=== PATIENT | female | born 1945 | race Caucasian/White ===

== ENCOUNTER → 2016-09-30 | Outpatient (CLI) | payer MEDICARE, OTHER ==
--- NOTE | 2016-10-01 10:47 | MRI ---
EXAM DESCRIPTION: MRI of the cervical spine CLINICAL HISTORY: RADICULOPATHY COMPARISON: None. TECHNIQUE: Multiplanar MRI of the cervical spine was performed without contrast. GENERAL The dens is unremarkable. The craniocervical and the atlantoaxial junctions are normal. Patient is status post anterior fusion of C5 through C7. Solid fusion noted at these levels. Vertebral body height and alignment is unremarkable. C2-3 Moderate right neural foraminal narrowing. Mild left neural foraminal narrowing. The midline diameter of the spinal canal is unremarkable. C3-4 Moderate bilateral neural foraminal narrowing. The midline diameter of the spinal canal is unremarkable. C4-5 Ligamentum flavum buckling and a 2 mm broad-based posterior disc protrusion. There is cord contact without myelomalacia. The AP diameter of the spinal canal is narrowed to 8.5 mm. There is moderate bilateral neural foraminal narrowing and facet degeneration. C5-6 Severe left and moderate right neural foraminal narrowing. The midline diameter of the spinal canal is mildly narrowed to 9 mm. No cord contact or myelomalacia. C6-7 Severe bilateral neural foraminal narrowing. The midline diameter of the spinal canal is adequate at 1 cm. C7-T1 2 mm broad-based posterior disc protrusion. Mild bilateral neural foraminal narrowing. The midline diameter of the spinal canal is unremarkable. It measures 1 cm in diameter. CORD AND INTRASPINAL No cervical cord or intraspinal lesions. IMPRESSION: Today's exam demonstrates C5 through C7 anterior fusion with solid fusion of the intervertebral levels. There is mild spinal canal narrowing at C4-5 and C5-6 without evidence of myelomalacia. Multilevel neural foraminal narrowing is noted. This most pronounced bilaterally at C6-7 in which there is severe narrowing. Electronically signed by: Shahid Hubbard MD 10/01/2016 10:45
== END ==
LOC: MRI 14:18
PROVIDERS: ATTEND Family Medicine
DX: M54.2 Cervicalgia (principal); M43.22 Fusion of spine, cervical region; M25.50 Pain in unspecified joint; M10.9 Gout, unspecified

== ENCOUNTER → 2016-10-13 | Outpatient (CLI) | payer MEDICARE, OTHER ==
--- NOTE | 2016-10-13 15:02 | MAM ---
EXAM DESCRIPTION: MAMMO BREAST SCREENING BILATERAL CAD, images were reviewed with CAD technology, R2 computer-aided detection. CLINICAL HISTORY: Well [facility]. COMPARISON: No prior study currently available. FINDINGS: Routine views are obtained. Glandular parenchyma is nodular in contour and of the increased mammographic density. Mammographic nodule right breast 10 o'clock 4-6 cm from the nipple and right breast retroareolar 9 o'clock are shown. Benign appearing calcifications are shown on the right. No architectural distortion is seen.. IMPRESSION: Incomplete study. BIRAD CATEGORY: 0 INCOMPLETE RECOMMENDATIONS: FOLLOW-UP: True lateral view right breast with spot compression films in the true lateral and craniocaudal projections. Directed ultrasound if indicated. According to the [employer], yearly mammograms are recommended starting at age 40 and continuing as long as a woman is in good health. Any breast change noted on a breast self-exam should be reported promptly to the patient's healthcare provider. Breast MRI is recommended for women with an approximately 20-25% or greater lifetime risk of breast cancer, including women with a strong family history of breast or ovarian cancer and women who have been treated for Hodgkin's disease. Electronically signed by: Muriel Lozano 10/13/2016 15:01
== END | disposition home or self-care (01) ==
LOC: MAMMO 10:05
PROVIDERS: ATTEND Family Medicine
DX: Z12.31 Encounter for screening mammogram for malignant neoplasm of breast (principal)

== ENCOUNTER → 2016-12-10 | Outpatient (CLI) | payer MEDICARE, OTHER | LOC: GMAL 12:37 | PROVIDERS: ATTEND Family Medicine | DX: R53.83 Other fatigue (principal); E55.9 Vitamin D deficiency, unspecified ==

== ENCOUNTER → 2016-12-18 | Outpatient (CLI) | payer MEDICARE, OTHER ==
--- NOTE | 2016-12-21 07:57 | MRI ---
EXAM DESCRIPTION: Lumbar Spine w/o Contrast CLINICAL HISTORY: 71 years, Female, LOW BACK PAIN COMPARISON: None TECHNIQUE: Multiplanar multi sequence images of the lumbar spine were obtained without gadolinium contrast. FINDINGS: Vertebral body height and alignment are well maintained. There are Modic type I discogenic endplate signal changes at L3-4. The conus lies posterior to the T12-L1 disc, and the cauda equina is unremarkable. The paraspinal and visualized retroperitoneal soft tissues are unremarkable. At L1-2, there is a 1 cm round intermediate T2 intermediate T1 signal structure in the left neural foramen which may represent extruded disc material. This abuts the exiting left L1 nerve root and results in severe left-sided neuroforaminal stenosis. No significant facet joint degeneration, central canal or right-sided neuroforaminal stenosis. At L2-3, there is concentric disc bulging with mild bilateral facet joint degeneration. No central canal or neuroforaminal stenosis. At L3-4, there is disc desiccation with concentric disc bulging, slightly worse in the right foraminal and right lateral positions. There is bilateral facet joint degeneration with ligamentum flavum thickening resulting in moderate central canal and moderate bilateral neuroforaminal stenosis, worse on the right side. No definite nerve root abutment. At L4-5, there is mild concentric disc bulging with bilateral facet joint degeneration and ligament flavum thickening resulting in mild to moderate central canal stenosis. No significant neuroforaminal stenosis. At L5-S1, there is only slight concentric disc bulging. Bilateral facet joint degeneration is also noted, but there is no central canal or neuroforaminal stenosis. IMPRESSION: 1 cm round lesion in the left neural foramen at L1-2 as detailed above, likely representing extruded disc material resulting in severe left-sided neuroforaminal stenosis and abutment of the exiting left L1 nerve root. MRI with gadolinium contrast is suggested for confirmation that this represents disc material rather than a lesion arising from the nerve sheath. Disc bulging, facet joint degeneration and ligamentum flavum thickening at L3-4 and L4-5 resulting in central canal and neural foraminal stenosis as detailed above. No additional nerve root abutment. Electronically signed by: Chinmay Page MD 12/21/2016 7:56 AM CDT
== END | disposition home or self-care (01) ==
LOC: MRI 12:56
PROVIDERS: ATTEND Family Medicine
DX: M48.06 Spinal stenosis, lumbar region (principal)

== ENCOUNTER → 2016-12-24 | Outpatient (CLI) | payer MEDICARE, OTHER ==
--- NOTE | 2016-12-24 13:33 | MAM ---
History: Focal asymmetry upper outer right breast. DATE OF SERVICE: 12/24/2016 Services provided: Full field digital diagnostic right mammography. FINDINGS: True lateral view of the right breast as well as spot compression views of the 10:00 portion right breast were obtained. Since the initial screening exam performed 10/13/2016 outside studies have been received dated 10/2009. The additional views demonstrate what appears to be normal glandular tissue without persistent mammographic abnormality. No associated distortion or dominant mass. Scattered benign calcifications are stable since the prior study. IMPRESSION: Benign exam. No mammographic evidence for malignancy in the right breast. Recommendation: Routine annual mammography. Findings and recommendations were communicated to the patient. BIRAD CATEGORY: 2 BENIGN Electronically signed by: Muriel Lozano MD 12/24/2016 1:31 PM CDT
--- NOTE | 2016-12-24 15:49 | MRI ---
EXAM DESCRIPTION: Lumbar Spine w/wo Contrast CLINICAL HISTORY: 71 years, Female, LOW BACK PAIN COMPARISON: Noncontrast MRI performed on December 18, 2016 TECHNIQUE: Multiplanar multi sequence images of the lumbar spine were obtained with and without gadolinium contrast. FINDINGS: Again seen is an ovoid lesion in the left neural foramen at L1-2 which demonstrates peripheral enhancement on postcontrast imaging consistent with extruded disc material resulting in severe left-sided neuroforaminal stenosis. No additional enhancing lesion is seen in the central canal, neural foramina, paraspinal soft tissues or visualized retroperitoneum. IMPRESSION: 9 mm disc extrusion in the left neural foramen at L1-2 resulting in severe left-sided neuroforaminal stenosis. Electronically signed by: Chinmay Page MD 12/24/2016 3:48 PM CDT
== END | disposition home or self-care (01) ==
LOC: MRI 08:54
PROVIDERS: ATTEND Family Medicine
DX: M48.06 Spinal stenosis, lumbar region (principal); R92.8 Other abnormal and inconclusive findings on diagnostic imaging of breast; M54.5 Low back pain

== ENCOUNTER 2017-01-13 20:46 | Emergency (ER) | payer MEDICARE, OTHER ==
[2017-01-13] MEDS ORDERED: SODIUM CHLORIDE 0.9% 10 ML VIAL ONE (20:48)
[2017-01-13] MEDS ORDERED: ASPIRIN TABLET 325 MG TAB ONE (20:51)
[2017-01-13] MEDS ORDERED: NITROGLYCERIN 0.4 MG 25 EA TAB SL ONE ×2 (20:51→20:52)
[2017-01-13] MEDS ORDERED: ASPIRIN TABLET 325 MG TAB PO ONE (20:52)
--- NOTE | 2017-01-13 21:42 | RAD ---
EXAM: Chest,1 View CLINICAL INDICATION: 71-year-old female with chest pain. TECHNIQUE: Single view, AP portable chest was obtained. COMPARISON: None. FINDINGS: Unremarkable cardiac and mediastinal silhouette. Heart size is normal. Tortuous atherosclerotic thoracic aorta. Lungs are clear without focal opacity, pneumothorax or pleural effusions. Bilateral linear basilar opacities may be secondary to subsegmental atelectasis or scarring. The visualized bones are within normal limits. Cervical fusion hardware. IMPRESSION: No acute cardiopulmonary abnormalities. Electronically signed by: Bhavani Nieto MD 01/13/2017 9:42 PM CDT
[2017-01-14] MEDS ORDERED: LIDOCAINE VIS-MYLANTA 30 ML UD PO ONE ×2 (01:08→01:09)
--- NOTE | 2017-01-14 01:10 | ED.PDOC ---
History of Present Illness - General Chief Complaint: Chest Pain/CO Stated Complaint: SOB, CP, Back pain Time Seen by Provider: 01/13/17 20:56 Source: patient Exam Limitations: no limitations - History of Present Illness Initial Comments: Patient presents with midsternal chest pain for approximately three hours. She says it was sudden onset but happened after some dyspnea she was having. She says she has had a history of "anxious breathing". Pain is non-radiating, sharp , constant, with no exacerbating nor alleviating factors. She has had previous episodes. No other complaints. Timing/Duration: 1-3 hours Severity: moderate Improving Factors: nothing Worsening Factors: nothing Associated Symptoms: shortness of breath Allergies/Adverse Reactions: Allergies Niacin Allergy (Verified 08/24/16 08:47) Penicillin G Allergy (Verified 08/24/16 08:47) Simvastatin [From Zocor] Allergy (Verified 08/24/16 08:47) Ezetimibe [From Zetia] Adverse Reaction (Verified 08/24/16 08:47) Promethazine [From Phenergan] Adverse Reaction (Verified 08/24/16 08:47) Statins Adverse Reaction (Verified 08/24/16 08:47) Home Medications: Ambulatory Orders Clonazepam 1 mg PO BEDTIME 08/24/16 Famotidine 40 mg PO DAILY 08/24/16 Linaclotide [Linzess] 145 mcg PO DAILY 08/24/16 Lisinopril 2.5 mg PO DAILY 08/24/16 Oxycodone HCl 10 mg PO DAILY 08/24/16 Premarin 0.625 mg PO DAILY 08/24/16 Trazodone HCl 150 mg PO BEDTIME 08/24/16 Albuterol Sulfate Nebs [Proventil Nebs] 2.5 mg INH PRN 01/13/17 Aspirin [Aspirin Adult Low Dose] 81 mg PO DAILY 01/13/17 Benzonatate 200 mg PO PRN 01/13/17 Fluticasone/Salmeterol 250/50 [Advair Diskus] 1 puff INH BID 01/13/17 Gabapentin 600 mg PO TID 01/13/17 Levothyroxine Sodium [Synthroid] 75 mcg PO DAILY 01/13/17 Melatonin [(None)] 3 mg PO BEDTIME 01/13/17 Saccharomyces Boulardii [Probiotic] 250 mg PO DAILY 01/13/17 Review of Systems - Review of Systems Constitutional: States: no symptoms reported EENTM: States: no symptoms reported Respiratory: States: see HPI Cardiology: States: see HPI Gastrointestinal/Abdominal: States: no symptoms reported Genitourinary: States: no symptoms reported Musculoskeletal: States: no symptoms reported Skin: States: no symptoms reported Neurological: States: no symptoms reported Endocrine: States: no symptoms reported Hematologic/Lymphatic: States: no symptoms reported Past Medical History (General) - Patient Medical History Hx Seizures: No Hx Stroke: No Hx Dementia: No Hx Asthma: No Hx of COPD: No Hx Cardiac Disorders: Yes Hx Congestive Heart Failure: No Hx Pacemaker: No Hx Hypertension: Yes Hx Thyroid Disease: No Hx Diabetes: No Hx Gastroesophageal Reflux: Yes Hx Renal Disease: No Hx Cancer: No Hx of HIV: No Hx Hepatitis C: No Hx MRSA: No Surgical History: appendectomy, cholecystectomy, tonsillectomy, Hysterectomy - Vaccination History Hx Tetanus, Diphtheria Vaccination: No Hx Influenza Vaccination: Yes Hx Pneumococcal Vaccination: Yes Immunizations Up to Date: No - Social History Hx Tobacco Use: No Hx Chewing Tobacco Use: No Hx Alcohol Use: No Hx Substance Use: No Hx Substance Use Treatment: No Hx Depression: No Feels Threatened In Home Enviroment: No Feels Threatened In a Relationship: No Hx Physical Abuse: No Hx Emotional Abuse: No Hx Suspected Abuse: No - Female History Patient : No Family Medical History - Family History Mother Family History: Unknown Living Status: Hx Family Congestive Heart Failure: No Physical Exam - Physical Exam General Appearance: Alert Ears, Nose, Throat: normal ENT inspection Neck: non-tender, full range of motion, supple Respiratory: lungs clear Cardiovascular/Chest: regular rate, rhythm Gastrointestinal/Abdominal: normal bowel sounds, non tender, soft Extremity: no pedal edema Skin Exam: normal color Lymphatic: no adenopathy Progress - Progress Progress: 01/14/17 01:11 Patient given ASA 324 mg po x one EKG read by me showed sinus tachycardia, no ST changes nor T wave inversions. No LBBB. Troponins x 2 negative. Patient' dyspnea resolved and she described the chest pain as more of an acid reflux type of feeling. She was given a GI cocktail and sent home. Laboratory Tests 01/13/17 01/13/17 01/13/17 21:00 21:00 21:00 WBC 10.5 RBC 4.66 Hgb 14.0 Hct 41.6 MCV 89.3 MCH 30.0 MCHC 33.6 RDW 13.4 Plt Count 230 MPV 9.6 Absolute Neuts (auto) 9.50 H Absolute Lymphs (auto) 0.90 L Absolute Monos (auto) 0.10 L Absolute Eos (auto) 0.00 Absolute Basos (auto) 0.10 Neutrophils % 90.1 H Lymphocytes % 8.5 L Monocytes % 0.8 L Eosinophils % 0.1 L Basophils % 0.5 PT INR PTT (SP) Sodium 138 Potassium 3.7 Chloride 105 Carbon Dioxide 22 Anion Gap 14.7 BUN 19 H Creatinine 1.06 BUN/Creatinine Ratio 17.9 Random Glucose 238 H Serum Osmolality 285.7 Calcium 9.7 Total Bilirubin 0.4 AST 36 ALT 30 Alkaline Phosphatase 49 Creatine Kinase 108 CK-MB (CK-2) 1.8 CK-MB (CK-2) % Not Reportable Troponin I < 0.02 B-Natriuretic Peptide 100.0 Serum Total Protein 7.2 Albumin 4.4 Globulin 2.8 Albumin/Globulin Ratio 1.6 01/13/17 01/14/17 21:00 00:20 WBC RBC Hgb Hct MCV MCH MCHC RDW Plt Count MPV Absolute Neuts (auto) Absolute Lymphs (auto) Absolute Monos (auto) Absolute Eos (auto) Absolute Basos (auto) Neutrophils % Lymphocytes % Monocytes % Eosinophils % Basophils % PT 10.4 INR 0.920 PTT (SP) 30.2 Sodium Potassium Chloride Carbon Dioxide Anion Gap BUN Creatinine BUN/Creatinine Ratio Random Glucose Serum Osmolality Calcium Total Bilirubin AST ALT Alkaline Phosphatase Creatine Kinase 86 CK-MB (CK-2) 1.6 CK-MB (CK-2) % Not Reportable Troponin I < 0.02 B-Natriuretic Peptide Serum Total Protein Albumin Globulin Albumin/Globulin Ratio Departure - Departure Clinical Impression: Chest pain, Anxiety Disposition: Discharge to Home or Self Care Condition: Good Departure Forms: ED Discharge - Pt. Copy, Patient Portal Self Enrollment Diet: resume usual diet Activity: increase activity as tolerated Referrals: Xavier Lopze III, MD [Primary Care Provider] - 1-2 Weeks Home Medications: Ambulatory Orders Clonazepam 1 mg PO BEDTIME 08/24/16 Famotidine 40 mg PO DAILY 08/24/16 Linaclotide [Linzess] 145 mcg PO DAILY 08/24/16 Lisinopril 2.5 mg PO DAILY 08/24/16 Oxycodone HCl 10 mg PO DAILY 08/24/16 Premarin 0.625 mg PO DAILY 08/24/16 Trazodone HCl 150 mg PO BEDTIME 08/24/16 Albuterol Sulfate Nebs [Proventil Nebs] 2.5 mg INH PRN 01/13/17 Aspirin [Aspirin Adult Low Dose] 81 mg PO DAILY 01/13/17 Benzonatate 200 mg PO PRN 01/13/17 Fluticasone/Salmeterol 250/50 [Advair Diskus] 1 puff INH BID 01/13/17 Gabapentin 600 mg PO TID 01/13/17 Levothyroxine Sodium [Synthroid] 75 mcg PO DAILY 01/13/17 Melatonin [(None)] 3 mg PO BEDTIME 01/13/17 Saccharomyces Boulardii [Probiotic] 250 mg PO DAILY 01/13/17 Additional Instructions: Follow up with your primary care physician in the next week.
[2017-01-14 01:24] VITALS: BP 104/48; TEMP 97.8; O2SAT 96
== END 2017-01-14 01:24 | disposition home or self-care (01) ==
LOC: ER 20:46
DX: R07.9 Chest pain, unspecified (principal); F41.9 Anxiety disorder, unspecified; I10 Essential (primary) hypertension; K21.9 Gastro-esophageal reflux disease without esophagitis; Z79.899 Other long term (current) drug therapy; Z79.82 Long term (current) use of aspirin; Z88.0 Allergy status to penicillin; Z88.8 Allergy status to other drugs, medicaments and biological substances

== ENCOUNTER 2017-03-26 09:17 | Emergency (ER) | payer MEDICARE, OTHER ==
--- NOTE | 2017-03-26 09:39 | ED.PDOC ---
History of Present Illness - General Chief Complaint: Cardiovascular Problem Stated Complaint: chest pain Time Seen by Provider: 03/26/17 09:23 Source: patient, RN notes reviewed, Vital Signs reviewed Exam Limitations: no limitations - History of Present Illness Initial Comments: Patient comes in with c/o of chest pain and SOB that occurred @ 18:30 last night and resolved on own @ 20:30. Symptoms started with her feeling hot and starting to sweat. She got up to get a glass of tea and felt very SOB while walking to kitchen. She then developed some mild chest heaviness with nausea. Other than some mild SOB she has been symptom free for 13 hours. No recent travel. Timing/Duration: 1-3 hours - 2 hours, resolved prior to arrival Severity/Quality: mild, pressure Location: substernal Chest Pain Radiation: no radiation Activities at Onset: rest Prior Chest Pain/Cardiac Workup: echocardiography - yesterday, other - Cardiovascular disease Improving Factors: nothing Worsening Factors: nothing Nitro Today/Relief: no nitro taken today Aspirin Treatment Today: no aspirin today Associated Symptoms: dizziness, nausea/vomiting, shortness of breath Allergies/Adverse Reactions: Allergies Acetaminophen [From Darvocet-N] Allergy (Verified 03/26/17 09:25) Niacin Allergy (Verified 08/24/16 08:47) Penicillin G Allergy (Verified 08/24/16 08:47) Propoxyphene [From Darvocet-N] Allergy (Verified 03/26/17 09:25) Simvastatin [From Zocor] Allergy (Verified 08/24/16 08:47) Ezetimibe [From Zetia] Adverse Reaction (Verified 08/24/16 08:47) Promethazine [From Phenergan] Adverse Reaction (Verified 08/24/16 08:47) Statins Adverse Reaction (Verified 08/24/16 08:47) Home Medications: Ambulatory Orders Clonazepam 1 mg PO BEDTIME 08/24/16 Famotidine 40 mg PO DAILY 08/24/16 Linaclotide [Linzess] 145 mcg PO DAILY 08/24/16 Lisinopril 2.5 mg PO DAILY 08/24/16 Oxycodone HCl 10 mg PO DAILY 08/24/16 Premarin 0.625 mg PO DAILY 08/24/16 Trazodone HCl 150 mg PO BEDTIME 08/24/16 Albuterol Sulfate Nebs [Proventil Nebs] 2.5 mg INH PRN 01/13/17 Aspirin [Aspirin Adult Low Dose] 81 mg PO DAILY 01/13/17 Benzonatate 200 mg PO PRN 01/13/17 Fluticasone/Salmeterol 250/50 [Advair Diskus] 1 puff INH BID 01/13/17 Gabapentin 600 mg PO TID 01/13/17 Levothyroxine Sodium [Synthroid] 75 mcg PO DAILY 01/13/17 Melatonin [(None)] 3 mg PO BEDTIME 01/13/17 Saccharomyces Boulardii [Probiotic] 250 mg PO DAILY 01/13/17 Nitroglycerin 0.4 mg Tab [Nitrostat] 0.4 mg SL Q5MIN PRN #1 bttl 03/26/17 Review of Systems - Review of Systems Constitutional: States: diaphoresis - now resolved. Denies: chills, fever - but felt hot, malaise, weakness EENTM: States: no symptoms reported Respiratory: States: short of breath. Denies: cough Cardiology: States: chest pain - Now resolved. Denies: palpitations, syncope Gastrointestinal/Abdominal: States: nausea - now resolved. Denies: abdominal pain Musculoskeletal: States: no symptoms reported Skin: States: no symptoms reported Neurological: States: no symptoms reported All other Systems: No Change from Baseline Past Medical History (General) - Patient Medical History Hx Seizures: No Hx Stroke: No Hx Dementia: No Hx Asthma: No Hx of COPD: No Hx Cardiac Disorders: Yes Hx Congestive Heart Failure: No Hx Pacemaker: No Hx Hypertension: Yes Hx Thyroid Disease: Yes Hx Diabetes: No Hx Gastroesophageal Reflux: Yes Hx Renal Disease: No Hx Cancer: No Hx of HIV: No Hx Hepatitis C: No Hx MRSA: No Surgical History: appendectomy, cholecystectomy, tonsillectomy, Hysterectomy, other - Vaccination History Hx Tetanus, Diphtheria Vaccination: No Hx Influenza Vaccination: Yes Hx Pneumococcal Vaccination: Yes - Social History Hx Tobacco Use: No Hx Chewing Tobacco Use: No Hx Alcohol Use: No Hx Substance Use: No Hx Substance Use Treatment: No Hx Depression: No Hx Physical Abuse: No Hx Emotional Abuse: No Hx Suspected Abuse: No - Female History Patient : No Family Medical History - Family History Mother Family History: Unknown Living Status: Hx Family Congestive Heart Failure: No Physical Exam - Physical Exam General Appearance: Alert, Comfortable, No apparent distress, Well Developed, Well Groomed, Well Hydrated, Well Nourished Neck: non-tender, full range of motion, supple, normal inspection Respiratory: chest non-tender, lungs clear, normal breath sounds, no respiratory distress, no accessory muscle use Cardiovascular/Chest: normal peripheral pulses, regular rate, rhythm, no edema, no gallop, no JVD, no murmur Peripheral Pulses: radial,right: 2+, radial,left: 2+, posterior tibialis,right: 2+, posterior tibialis,left: 2+ Gastrointestinal/Abdominal: normal bowel sounds, non tender, soft, no organomegaly, no pulsatile mass Extremity: normal range of motion, non-tender, normal inspection, no pedal edema Neurologic: alert, normal mood/affect, oriented x 3 Skin Exam: normal color, warm/dry Comments: Vital Signs 03/26/17 09:18 Pulse Rate [RAC 65 ] Respiratory 20 Rate Blood Pressure 143/79 [RAC] O2 Sat by Pulse 96 Oximetry Progress - Progress Progress: 03/26/17 10:23 Discussed results with patient and family. Rec. follow up with Environmental Compliance Specialist. - Results/Orders Results/Orders: Laboratory Tests 03/26/17 03/26/17 03/26/17 09:45 09:45 09:45 WBC 14.2 H RBC 4.34 Hgb 12.8 Hct 38.8 MCV 89.5 MCH 29.6 MCHC 33.1 RDW 13.8 Plt Count 219 MPV 9.2 Absolute Neuts (auto) 11.10 H Absolute Lymphs (auto) 2.00 Absolute Monos (auto) 1.00 H Absolute Eos (auto) 0.10 Absolute Basos (auto) 0.10 Neutrophils % 77.7 Lymphocytes % 14.2 L Monocytes % 7.1 Eosinophils % 0.4 L Basophils % 0.6 D-Dimer, Quantitative < 200 Sodium 138 Potassium 4.0 Chloride 105 Carbon Dioxide 24 Anion Gap 13.0 BUN 15 Creatinine 0.92 BUN/Creatinine Ratio 16.3 Random Glucose 109 H Serum Osmolality 277.1 Calcium 9.7 Total Bilirubin 0.7 AST 17 ALT 21 Alkaline Phosphatase 48 Creatine Kinase 54 CK-MB (CK-2) 1.4 CK-MB (CK-2) % Not Reportable Troponin I < 0.02 Serum Total Protein 6.6 Albumin 3.9 Globulin 2.7 Albumin/Globulin Ratio 1.4 - EKG/XRAY/CT EKG: Sinus, no ST T wave changes XRAY: chest - cardiomegaly o/w no acute findings per Radiologist Departure - Departure Clinical Impression: Chest pain Qualifiers: Chest pain type: chest pain due to myocardial ischemia Ischemic chest pain type : stable angina pectoris Qualified Code(s): I20.8 - Other forms of angina pectoris Time of Disposition: 10:25 Disposition: Discharge to Home or Self Care Condition: Good Departure Forms: ED Discharge - Pt. Copy, Patient Portal Self Enrollment Instructions: DI for Angina Diet: resume usual diet Activity: increase activity as tolerated Referrals: Xavier Lopez III, MD [Primary Care Provider] - 1 Week CHASE SALTER [Referring] - 1 Week Prescriptions: Nitroglycerin 0.4 mg Tab [Nitrostat] 0.4 mg SL Q5MIN PRN #1 bttl PRN Reason: Chest Pain Home Medications: Ambulatory Orders Clonazepam 1 mg PO BEDTIME 08/24/16 Famotidine 40 mg PO DAILY 08/24/16 Linaclotide [Linzess] 145 mcg PO DAILY 08/24/16 Lisinopril 2.5 mg PO DAILY 08/24/16 Oxycodone HCl 10 mg PO DAILY 08/24/16 Premarin 0.625 mg PO DAILY 08/24/16 Trazodone HCl 150 mg PO BEDTIME 08/24/16 Albuterol Sulfate Nebs [Proventil Nebs] 2.5 mg INH PRN 01/13/17 Aspirin [Aspirin Adult Low Dose] 81 mg PO DAILY 01/13/17 Benzonatate 200 mg PO PRN 01/13/17 Fluticasone/Salmeterol 250/50 [Advair Diskus] 1 puff INH BID 01/13/17 Gabapentin 600 mg PO TID 01/13/17 Levothyroxine Sodium [Synthroid] 75 mcg PO DAILY 01/13/17 Melatonin [(None)] 3 mg PO BEDTIME 01/13/17 Saccharomyces Boulardii [Probiotic] 250 mg PO DAILY 01/13/17 Nitroglycerin 0.4 mg Tab [Nitrostat] 0.4 mg SL Q5MIN PRN #1 bttl 03/26/17
--- NOTE | 2017-03-26 10:20 | RAD ---
EXAM DESCRIPTION: Chest,1 View CLINICAL HISTORY: CP/SOB COMPARISON: January 13, 2017 IMPRESSION: Single AP portable upright view of the chest shows enlargement of the cardiac silhouette without pulmonary vascular congestion. Moderate vascular calcifications. Lungs are normally aerated. Linear interstitial thickening in the region of the lingula of left upper lobe and right middle lobe are again seen suggesting scarring or atelectasis. No obvious pleural effusion or pneumothorax is seen. Electronically signed by: Mik Georges MD 03/26/2017 10:18 AM CDT
[2017-03-26 11:11] VITALS: BP 163/76; O2SAT 95
== END 2017-03-26 10:48 | disposition home or self-care (01) ==
LOC: ER 09:17
DX: I20.8 Other forms of angina pectoris (principal); I10 Essential (primary) hypertension; E07.9 Disorder of thyroid, unspecified; I51.7 Cardiomegaly; K21.9 Gastro-esophageal reflux disease without esophagitis; Z79.899 Other long term (current) drug therapy; Z79.82 Long term (current) use of aspirin; Z88.0 Allergy status to penicillin; Z88.6 Allergy status to analgesic agent; Z88.8 Allergy status to other drugs, medicaments and biological substances

== ENCOUNTER → 2017-05-05 | Outpatient (CLI) | payer MEDICARE, OTHER | LOC: GMAL 11:01 | PROVIDERS: ATTEND Family Medicine | DX: D51.3 Other dietary vitamin B12 deficiency anemia (principal) ==

== ENCOUNTER → 2017-12-06 | Outpatient (CLI) | payer MEDICARE, OTHER | END | disposition home or self-care (01) | LOC: LAB.O 09:17 | PROVIDERS: ATTEND Pain Medicine Interventional Pain Medicine | DX: Z01.810 Encounter for preprocedural cardiovascular examination (principal); Z51.81 Encounter for therapeutic drug level monitoring; Z01.812 Encounter for preprocedural laboratory examination; M54.5 Low back pain; M41.20 Other idiopathic scoliosis, site unspecified; M51.36 Other intervertebral disc degeneration, lumbar region ==

== ENCOUNTER → 2018-01-18 | Outpatient (CLI) | payer MEDICARE, OTHER | LOC: GMAL 12:07 | PROVIDERS: ATTEND Family Medicine | DX: R53.83 Other fatigue (principal) ==

== ENCOUNTER → 2018-07-14 | Outpatient (CLI) | payer MEDICARE, OTHER | LOC: LAB.O 09:45 | PROVIDERS: ATTEND Pain Medicine Interventional Pain Medicine | DX: Z01.810 Encounter for preprocedural cardiovascular examination (principal); Z01.812 Encounter for preprocedural laboratory examination; Z51.81 Encounter for therapeutic drug level monitoring; Z79.01 Long term (current) use of anticoagulants; M41.20 Other idiopathic scoliosis, site unspecified; M51.36 Other intervertebral disc degeneration, lumbar region ==

== ENCOUNTER → 2018-09-27 | Outpatient (CLI) | payer MEDICARE, OTHER | LOC: GMAL 10:27 | PROVIDERS: ATTEND Family Medicine | DX: D51.3 Other dietary vitamin B12 deficiency anemia (principal); E55.9 Vitamin D deficiency, unspecified ==

== ENCOUNTER 2018-12-18 10:57 | Emergency (ER) | payer MEDICARE, OTHER ==
[2018-12-18 11:22] VITALS: TEMP 96.9
[2018-12-18] MEDS ORDERED: predniSONE 20 MG TAB PO ONE (13:02)
[2018-12-18] MEDS ORDERED: KETOROLAC TROMETHAMINE INJ 30 MG/ML VIAL IM ONE (13:02)
[2018-12-18] MEDS ORDERED: CYCLOBENZAPRINE HCL 10 MG TAB PO ONE (13:02)
--- NOTE | 2018-12-18 13:06 | ED.PDOC ---
History of Present Illness - General Chief Complaint: Neck Injury/Pain Stated Complaint: neck pain Time Seen by Provider: 12/18/18 11:02 Source: patient Exam Limitations: no limitations - History of Present Illness Initial Comments: the patient is a 77-year-old female presenting to the emergency room secondary to diffuse paraspinals muscle spasm of the cervical spine extending to the trapezius muscles bilaterally. The patient has an associated tension headache. it has been progressive over the last week. She has had previous cervical spine surgeries in the past and does have significant arthritis there to start with. No recent injury. No focal neurological changes. Timing/Duration: 1 week Severity: moderate Improving Factors: nothing Worsening Factors: movement Associated Symptoms: denies symptoms Allergies/Adverse Reactions: Allergies Acetaminophen [From Darvocet-N] Allergy (Verified 03/26/17 09:25) Niacin Allergy (Verified 08/24/16 08:47) Penicillin G Allergy (Verified 08/24/16 08:47) Propoxyphene [From Darvocet-N] Allergy (Verified 03/26/17 09:25) Simvastatin [From Zocor] Allergy (Verified 08/24/16 08:47) Ezetimibe [From Zetia] Adverse Reaction (Verified 08/24/16 08:47) Promethazine [From Phenergan] Adverse Reaction (Verified 08/24/16 08:47) Statins Adverse Reaction (Verified 08/24/16 08:47) Home Medications: Ambulatory Orders Linaclotide [Linzess] 145 mcg PO .TWICEWEEKLY 08/24/16 Trazodone HCl 150 mg PO BEDTIME 08/24/16 Albuterol Sulfate Nebs [Proventil Nebs] 2.5 mg INH PRN 01/13/17 Benzonatate 200 mg PO PRN 01/13/17 Gabapentin 600 mg PO TID 01/13/17 Levothyroxine Sodium [Synthroid] 75 mcg PO DAILY 01/13/17 Melatonin [(None)] 3 mg PO BEDTIME 01/13/17 Budesonide-Formoterol Fumarate [Symbicort] 1 aer IN BID PRN 12/18/18 Clonazepam 1 mg PO BEDTIME 12/18/18 Cyclobenzaprine HCl [Flexeril] 10 mg PO TID PRN #20 tab 12/18/18 Escitalopram [Lexapro] 5 mg PO DAILY 12/18/18 Estrogens, Conjugated [Premarin] 1.25 mg PO DAILY 12/18/18 predniSONE [Prednisone] 20 mg PO DAILY #5 tab 12/18/18 Review of Systems - Review of Systems Constitutional: States: no symptoms reported EENTM: States: no symptoms reported Respiratory: States: no symptoms reported Cardiology: States: no symptoms reported Gastrointestinal/Abdominal: States: no symptoms reported Genitourinary: States: no symptoms reported Musculoskeletal: States: neck pain Skin: States: no symptoms reported Neurological: States: no symptoms reported Endocrine: States: no symptoms reported All other Systems: No Change from Baseline Past Medical History (General) - Patient Medical History Hx Seizures: No Hx Stroke: No Hx Dementia: No Hx Asthma: No Hx of COPD: No Hx Cardiac Disorders: Yes Hx Congestive Heart Failure: No Hx Pacemaker: No Hx Hypertension: Yes Hx Thyroid Disease: Yes Hx Diabetes: No Hx Gastroesophageal Reflux: Yes Hx Renal Disease: No Hx Cancer: No Hx of HIV: No Hx Hepatitis C: No Hx MRSA: No Surgical History: appendectomy, cholecystectomy, tonsillectomy, Hysterectomy - Vaccination History Hx Tetanus, Diphtheria Vaccination: No Hx Influenza Vaccination: Yes Hx Pneumococcal Vaccination: Yes - Social History Hx Tobacco Use: Yes Hx Chewing Tobacco Use: No Hx Alcohol Use: No Hx Substance Use: No Hx Substance Use Treatment: No Hx Depression: No Hx Physical Abuse: No Hx Emotional Abuse: No Hx Suspected Abuse: No - Female History Patient : No Family Medical History - Family History Mother Family History: Unknown Living Status: Hx Family Congestive Heart Failure: No Physical Exam - Physical Exam General Appearance: Alert, Comfortable, No apparent distress Eye Exam: bilateral normal Ears, Nose, Throat: hearing grossly normal, normal ENT inspection, normal pharynx Neck: other - the diffuse paraspinal muscle spasm of the cervical spine. Tenderness to palpation adjacent to the spinous processes but not over the spinous processes. no obvious acute trauma. 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 She does have a long-standing history of chronic arthritic changes and no recent trauma. X-ray of the cervical spine shows no acute pathology, multiple chronic changes. The patient is going to be placed on prednisone for the next 5 days as an anti-inflammatory and she is going to be written for a muscle relaxer for as needed use. She does need to apply topical heat over the area and start doing gentle stretching exercises. Keep follow-up with primary care doctor this coming week. ER warnings were given. Departure - Departure Clinical Impression: Cervical myofascial strain Qualifiers: Encounter type: initial encounter Qualified Code(s): S16.1XXA - Strain of muscle, fascia and tendon at neck level, initial encounter Disposition: Discharge to Home or Self Care Condition: Fair Departure Forms: ED Discharge - Pt. Copy, Patient Portal Self Enrollment Instructions: DI for Cervical Muscle Strain Diet: regular diet Activity: increase activity as tolerated Referrals: Xavier Lopez III, MD [Primary Care Provider] - 1-2 Weeks Prescriptions: Cyclobenzaprine HCl [Flexeril] 10 mg PO TID PRN #20 tab PRN Reason: Muscle Spasms predniSONE [Prednisone] 20 mg PO DAILY #5 tab Home Medications: Ambulatory Orders Linaclotide [Linzess] 145 mcg PO .TWICEWEEKLY 08/24/16 Trazodone HCl 150 mg PO BEDTIME 08/24/16 Albuterol Sulfate Nebs [Proventil Nebs] 2.5 mg INH PRN 01/13/17 Benzonatate 200 mg PO PRN 01/13/17 Gabapentin 600 mg PO TID 01/13/17 Levothyroxine Sodium [Synthroid] 75 mcg PO DAILY 01/13/17 Melatonin [(None)] 3 mg PO BEDTIME 01/13/17 Budesonide-Formoterol Fumarate [Symbicort] 1 aer IN BID PRN 12/18/18 Clonazepam 1 mg PO BEDTIME 12/18/18 Cyclobenzaprine HCl [Flexeril] 10 mg PO TID PRN #20 tab 12/18/18 Escitalopram [Lexapro] 5 mg PO DAILY 12/18/18 Estrogens, Conjugated [Premarin] 1.25 mg PO DAILY 12/18/18 predniSONE [Prednisone] 20 mg PO DAILY #5 tab 12/18/18 Additional Instructions: the patient is a 73-year-old female presenting to emergency room secondary to progressive muscle spasm in the muscles adjacent to the cervical spine over the last week. She does have a long-standing history of chronic arthritic changes and no recent trauma. X-ray of the cervical spine shows no acute pathology, multiple chronic changes. The patient is going to be placed on prednisone for the next 5 days as an anti-inflammatory and she is going to be written for a muscle relaxer for as needed use. She does need to apply topical heat over the area and start doing gentle stretching exercises. Keep follow-up with primary care doctor this coming week. ER warnings were given.
[2018-12-18 13:30] VITALS: BP 159/75; O2SAT 97
== END 2018-12-18 13:30 | disposition home or self-care (01) ==
LOC: ER 10:57
DX: S16.1XXA Strain of muscle, fascia and tendon at neck level, initial encounter (principal); M47.812 Spondylosis without myelopathy or radiculopathy, cervical region; G44.209 Tension-type headache, unspecified, not intractable; I51.9 Heart disease, unspecified; I10 Essential (primary) hypertension; E07.9 Disorder of thyroid, unspecified; K21.9 Gastro-esophageal reflux disease without esophagitis; Z87.891 Personal history of nicotine dependence; Z79.899 Other long term (current) drug therapy; Z88.8 Allergy status to other drugs, medicaments and biological substances; Z88.6 Allergy status to analgesic agent; Z88.0 Allergy status to penicillin; Z98.890 Other specified postprocedural states; X58.XXXA Exposure to other specified factors, initial encounter; Y92.9 Unspecified place or not applicable
CPT/HCPCS: 72040; J1885; J7512

== ENCOUNTER → 2019-04-06 | Outpatient (CLI) | payer MEDICARE, OTHER ==
--- NOTE | 2019-04-06 11:27 | MRI ---
EXAM DESCRIPTION: Shoulder,Right CLINICAL HISTORY: 73 years, Female, ROTATOR CUFF SYNDROME. Constant ache worse when raising up arm. No acute injury. COMPARISON: None TECHNIQUE: MRI of the right shoulder was performed with multiplanar multi sequence imaging without intravenous contrast. FINDINGS: Rotator tendons: Mild supraspinatus tendons tendinosis. There is partial-thickness (approximately 40% thickness) bursal surface tears of the supraspinatus tendon. The infraspinatus, subscapularis and teres minor tendons are intact. Rotator muscles: No significant rotator cuff muscle atrophy. Glenoid labrum: There is degenerative tearing of the anterior labrum with small para labral cyst measuring approximately 7 mm at the level of the rotator cuff interval (anterior to the biceps labral anchor). Acromion: The acromion morphology is type one. Bone and joints: No focal bone marrow contusion or fracture. No thickness cartilage defect. Mild right glenohumeral joint osteoarthrosis with articular cartilage thinning. Moderate right acromioclavicular joint osteoarthrosis with mild capsular hypertrophy and small inferiorly projecting osteophyte.. Biceps tendon: Normal course and morphology of the biceps tendon long head within the bicipital groove. The biceps labral anchor appears intact. Mild intra-articular segment tendinosis of the long head biceps tendon. Soft tissues: No focal muscle edema. IMPRESSION: 1. Degenerative tearing of the anterior labrum with small para labral cyst just deep to the rotator cuff interval. 2. Supraspinatus partial-thickness bursal surface tears. No full-thickness tear or tendon retraction. Supraspinatus tendinosis. 3. Moderate acromioclavicular joint osteoarthrosis with inferior projecting osteophyte which can be a source for extremity impingement of the rotator cuff. 4. Mild subacromial/subdeltoid bursitis. 5. Mild proximal biceps tendinosis. Electronically signed by: Caio Ball DO 04/06/2019 11:25 AM CDT
== END ==
LOC: MRI 08:00
PROVIDERS: ATTEND Orthopaedic Surgery
DX: M75.101 Unspecified rotator cuff tear or rupture of right shoulder, not specified as traumatic (principal); M75.91 Shoulder lesion, unspecified, right shoulder; M19.011 Primary osteoarthritis, right shoulder; M25.711 Osteophyte, right shoulder; M75.51 Bursitis of right shoulder; M71.311 Other bursal cyst, right shoulder

== ENCOUNTER → 2019-06-13 | Outpatient (CLI) | payer MEDICARE, OTHER | LOC: GMAL 14:19 | PROVIDERS: ATTEND Family Medicine | DX: R53.83 Other fatigue (principal) ==

== ENCOUNTER → 2019-07-31 | Outpatient (CLI) | payer MEDICARE, OTHER ==
--- NOTE | 2019-08-01 10:47 | MRI ---
EXAM DESCRIPTION: MRA Head and/or Neck (accession [id number]), Brain w/o Contrast (accession [id number]): MRI. CLINICAL HISTORY: OCCIPITAL NEURALGIA COMPARISON: None. TECHNIQUE: Multiplanar, high-field MRI unit, multiple diffusion sequences, multiple conventional sequences without contrast. 3D [id number] thin-section axial acquisitions through the base of the skull and the [place]. Non contrast. MIP reconstructions. FINDINGS: Minimal hyperintense FLAIR and T2-weighted signal in the periventricular white matter around the frontal horns and occipital horns of the lateral ventricles. Also bilateral foci of similar signal in the frontal and occipital lobes. Bowen radiata and centrum semiovale white matter are relatively uninvolved. Question of focal diffusion restriction in the junction of the posterior limb of the right inferior internal capsule and the right inferior thalamus, abutting the right substantia nigra fibers. No abnormal signal seen on other sequences or dislocation. No hemorrhage, no cerebral edema, no mass-effect. Normal signal in the bilateral basal ganglia. Normal signal in the brainstem and cerebellar hemispheres. No hemorrhage, no parenchymal edema, no mass-effect. Except for possible lesion noted above, there is concordance of the diffusion and non-diffusion sequences with no diffusion restriction. Cortical sulci are mildly prominent. Ventricles, lateral and third, are moderately prominent. Other CSF spaces, and the subdural spaces are minimally prominent.. No effacement or displacement. No midline shift. No extra-axial hemorrhage. Normal flow signal void in the major vessels of the [place], and the venous sinuses. IACs are symmetric bilaterally. Normal signal in the bilateral mastoid air cells. No mass effect in the bilateral cerebellopontine angles. Pituitary gland occupies most of the sella. Base of the cerebellar tonsils is at the level of the foramen magnum. Mucoperiosteal thickening in the paranasal sinuses with some bilateral polyps or cysts or focal thickening.. The bony calvarium is intact. The included segments of the intracranial and extracranial bilateral ICAs are unremarkable. The left intracranial ICA gives off a large posterior communicating artery which supplies essentially the complete left posterior cerebral artery. Normal bifurcation to form the A1 segment of the CRYSTAL and MCA. Intracranial right ICA gives off a small posterior communicating artery. Normal bifurcation to form the MCA and the A1 segment of the CRYSTAL. Proximal branches of the bilateral MCAs and ACAs are unremarkable. Distal vertebral arteries are visualized with bilateral PICA vessels exiting. Right vertebral artery slightly larger. Bilateral AICA vessels exiting from the proximal basilar artery and bilateral superior cerebellar arteries exiting from the distal basilar artery. Distal basilar artery essentially joins the small right posterior communicating artery to form the right posterior cerebral artery. A small vessel exiting the basilar artery distal to the right posterior cerebellar artery may represent a rudimentary contribution to the left posterior cerebral artery. No mass effect, no aneurysm, no significant narrowing or stenosis, and no vasculitis associated with the anterior posterior circulations. IMPRESSION: 1. Minimal periventricular and subcortical white matter disease, most likely related to cerebral microvascular disease and aging. Prominence of the cortical sulci cisterns and ventricles except for the fourth ventricle suggestive of cortical and central atrophy that is prominent for patient's age. Question of a small infarct of indeterminate age, on the B-1000 diffusion sequence, in the vicinity of the inferior posterior limb of the right internal capsule, right inferior thalamus, and the right posterior substantia nigra fibers. No hemorrhage or mass effect, and other sequences show no abnormality. 2. Paranasal sinusitis. Possible polyps or cysts. No air-fluid levels. 3. No vasculitis, mass effect, aneurysm, or significant narrowing/stenosis on MRA of the brain without contrast. Anatomic variants are present. Electronically signed by: Mateusz Reyes MD 08/01/2019 10:45 AM [facility]
--- NOTE | 2019-08-01 10:47 | MRI ---
EXAM DESCRIPTION: MRA Head and/or Neck (accession [id number]), Brain w/o Contrast (accession [id number]): MRI. CLINICAL HISTORY: OCCIPITAL NEURALGIA COMPARISON: None. TECHNIQUE: Multiplanar, high-field MRI unit, multiple diffusion sequences, multiple conventional sequences without contrast. 3D [id number]-[id number]-[id number] thin-section axial acquisitions through the base of the skull and the [place]. Non contrast. MIP reconstructions. FINDINGS: Minimal hyperintense FLAIR and T2-weighted signal in the periventricular white matter around the frontal horns and occipital horns of the lateral ventricles. Also bilateral foci of similar signal in the frontal and occipital lobes. Bowen radiata and centrum semiovale white matter are relatively uninvolved. Question of focal diffusion restriction in the junction of the posterior limb of the right inferior internal capsule and the right inferior thalamus, abutting the right substantia nigra fibers. No abnormal signal seen on other sequences or dislocation. No hemorrhage, no cerebral edema, no mass-effect. Normal signal in the bilateral basal ganglia. Normal signal in the brainstem and cerebellar hemispheres. No hemorrhage, no parenchymal edema, no mass-effect. Except for possible lesion noted above, there is concordance of the diffusion and non-diffusion sequences with no diffusion restriction. Cortical sulci are mildly prominent. Ventricles, lateral and third, are moderately prominent. Other CSF spaces, and the subdural spaces are minimally prominent.. No effacement or displacement. No midline shift. No extra-axial hemorrhage. Normal flow signal void in the major vessels of the [place], and the venous sinuses. IACs are symmetric bilaterally. Normal signal in the bilateral mastoid air cells. No mass effect in the bilateral cerebellopontine angles. Pituitary gland occupies most of the sella. Base of the cerebellar tonsils is at the level of the foramen magnum. Mucoperiosteal thickening in the paranasal sinuses with some bilateral polyps or cysts or focal thickening.. The bony calvarium is intact. The included segments of the intracranial and extracranial bilateral ICAs are unremarkable. The left intracranial ICA gives off a large posterior communicating artery which supplies essentially the complete left posterior cerebral artery. Normal bifurcation to form the A1 segment of the CRYSTAL and MCA. Intracranial right ICA gives off a small posterior communicating artery. Normal bifurcation to form the MCA and the A1 segment of the CRYSTAL. Proximal branches of the bilateral MCAs and ACAs are unremarkable. Distal vertebral arteries are visualized with bilateral PICA vessels exiting. Right vertebral artery slightly larger. Bilateral AICA vessels exiting from the proximal basilar artery and bilateral superior cerebellar arteries exiting from the distal basilar artery. Distal basilar artery essentially joins the small right posterior communicating artery to form the right posterior cerebral artery. A small vessel exiting the basilar artery distal to the right posterior cerebellar artery may represent a rudimentary contribution to the left posterior cerebral artery. No mass effect, no aneurysm, no significant narrowing or stenosis, and no vasculitis associated with the anterior posterior circulations. IMPRESSION: 1. Minimal periventricular and subcortical white matter disease, most likely related to cerebral microvascular disease and aging. Prominence of the cortical sulci cisterns and ventricles except for the fourth ventricle suggestive of cortical and central atrophy that is prominent for patient's age. Question of a small infarct of indeterminate age, on the B-1000 diffusion sequence, in the vicinity of the inferior posterior limb of the right internal capsule, right inferior thalamus, and the right posterior substantia nigra fibers. No hemorrhage or mass effect, and other sequences show no abnormality. 2. Paranasal sinusitis. Possible polyps or cysts. No air-fluid levels. 3. No vasculitis, mass effect, aneurysm, or significant narrowing/stenosis on MRA of the brain without contrast. Anatomic variants are present. Electronically signed by: Mateusz Reyes MD 08/01/2019 10:45 AM [facility]
== END ==
LOC: MRI 10:56
PROVIDERS: ATTEND Psychiatry & Neurology Neurology
DX: M54.81 Occipital neuralgia (principal); R90.82 White matter disease, unspecified; J32.9 Chronic sinusitis, unspecified; M50.123 Cervical disc disorder at C6-C7 level with radiculopathy

== ENCOUNTER → 2019-08-03 | Outpatient (CLI) | payer MEDICARE, OTHER ==
--- NOTE | 2019-08-03 21:23 | MRI ---
EXAM DESCRIPTION: MRA Head and/or Neck CLINICAL HISTORY: OCCIPITAL NEURALGIA COMPARISON: MRI scan of the brain and MRA of the brain without contrast 31 July 2019. MRI scan of the cervical spine on this visit. TECHNIQUE: 2D and 3D [id number]-wl-boodoz thin-section axial acquisitions from the lower neck through the base of the skull. Non contrast. MIP reconstructions. Technically difficult study due to patient moving breathing and swallowing.. FINDINGS: Left CCA originates from the aortic arch and the right CCA originates from bifurcation of innominate artery. Minimal narrowing of the origin of the left common carotid artery. Tortuous origin of the right common carotid artery. In the distal left CCA, plaque on the posterior wall causing approximately 65% diameter stenosis. Irregular plaque in the bifurcation of the right CCA with poststenotic dilation. Distal to the dilation, plaque on the medial wall causing approximately 55% diameter stenosis. Mild narrowing of the origin of the left ICA at the bifurcation with poststenotic dilation. Irregular plaque with no significant narrowing of the bilateral cervical segments of the ICAs or bilateral petrous segments of the ICAs. Left vertebral artery originates from the left subclavian artery and is tortuous. Origin of both vertebral arteries is not well seen on the source images. The intracervical segments of the left vertebral is smaller than the right vertebral. Transition from the cervical foramen to the base of the skull obscured in the left vertebral artery. In the foramen magnum, the right vertebral artery is slightly larger. The right PICA artery is visualized but the left PICA is not visualized prior to formation of the basilar artery. IMPRESSION: 1. Technically difficult study due to patient motion breathing and swallowing. 2. 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 Narrowing of the origin of the left ICA with poststenotic dilation. No significant narrowing of the cervical or petrous segments. 3. Narrowing of the origin of the right ICA at the bifurcation with poststenotic dilation. Immediately distal to the dilation, the right ICA demonstrates 55% diameter stenosis. 4. Limited visualization of bilateral vertebral arteries and origin and transition from the vertebral foramen into the foramen magnum, more on the left. Right vertebral artery is dominant. Electronically signed by: Mateusz Reyes MD 08/03/2019 9:22 PM [employer]GER
--- NOTE | 2019-08-04 10:16 | MRI ---
EXAM DESCRIPTION: Cervical Spine: MRI. CLINICAL HISTORY: 74 years Female RADICULOPATHY COMPARISON: MRA of the carotid and vertebral vessels on the same visit. MRI Brain and MRA brain on 31 July 2019. MRI cervical spine noncontrast September 2016 TECHNIQUE: Multiplanar, high-field MRI, multiple sequences, non-contrast Cervical spine. FINDINGS: Since the prior study, the anterior fusion construct at C5 - C7 has been revised. Anterior fusion construct narrowing at C4 and C5 with bilateral screws and plate at both levels. Minimal narrowing of the canal at the level of the disc space. No foraminal stenosis. Minimal arthrosis in the left facet with fusion of the right facet. C2-C3: Disc space maintained with minimal desiccation and small midline posterior bulge. Hypertrophy of the right facet with minimal right neural foraminal narrowing. Thickening of the posterior ligaments. Mild canal narrowing. Left neural foramen and facet are unremarkable. C3-C4: Disc desiccation and minimal disc space loss. Bilateral mild facet arthrosis and hypertrophy. Bilateral mild neural foraminal narrowing. Mild canal narrowing. C5-C6: Almost complete bony fusion of the disc space. Moderate canal narrowing. Minimal facet arthrosis. Bilateral mild neural foraminal narrowing. C6-C7: Bony fusion predominantly anterior with residual rudimentary disc space posterior. Marked disc space narrowing. Bilateral uncinate spurs. Bilateral moderate to severe neural foraminal narrowing. Bilateral mild facet arthrosis. C7-T1: Disc desiccation with disc space maintained. No posterior bulging. Minimal thickening of the posterior ligaments. Mild canal narrowing. Mild narrowing of the bilateral neural foramina. Hypertrophic arthrosis right facet joint left facet joint negative. Similar appearance on the prior study. T1-T2: Disc desiccation with disc space maintained. Bilateral facets are unremarkable. Canal patent with mild bilateral neural foraminal narrowing. Hyperintense T1 and T2 circumscribed hemangioma in the T2 vertebral body. Spondylosis with posterior bulging disc at T2-T3 with mild to moderate canal narrowing the neural foramina are patent. Spinal alignment unremarkable. No cord compression or cord edema. Atlantoaxial joint minimal hypertrophic arthrosis.. Base of the cerebellar tonsils is slightly above the foramen magnum. Paravertebral soft tissues decreased size and diffuse low-density in the region of the left thyroid lobe. No definite nodules or mass.. Vertebral bodies are not compressed at any level. Otherwise normal marrow signal in the remaining vertebral bodies and the posterior elements. IMPRESSION: 1. Previous C5-C7 anterior cervical disc fusion has been removed, with placement of C4-C5 anterior fusion hardware since the prior study. No canal or neural foraminal stenosis or other complications. 2. Minimal arthrosis right C2-C3 facet and narrowing of the neural foramen and canal. Small posterior midline disc bulge. 3. C5-C6 disc space almost complete osseous fusion with moderate canal narrowing and mild neural foraminal narrowing bilaterally. 4. C6-C7 disc space incomplete osseous fusion posteriorly, with marked disc space effusion. Bilateral uncinate spurs and bilateral moderate to severe neural foraminal narrowing. Correlate for bilateral or unilateral C7 radiculopathy. Electronically signed by: Mateusz Reyes MD 08/04/2019 10:14 AM [facility]
== END ==
LOC: MRI 10:00
PROVIDERS: ATTEND Psychiatry & Neurology Neurology
DX: M50.123 Cervical disc disorder at C6-C7 level with radiculopathy (principal); M47.22 Other spondylosis with radiculopathy, cervical region; M54.81 Occipital neuralgia; I65.23 Occlusion and stenosis of bilateral carotid arteries; Z98.1 Arthrodesis status